=== PATIENT | female | born 1990 | race African-American/Black ===

== ENCOUNTER 2022-08-27 07:37 | Day surgery (SDC) | payer OTHER ==
[2022-08-25 11:55] VITALS: BMI 27.4
[2022-08-27] MEDS ORDERED: methylPREDNISolone ACET (DEPO) 40 MG/1 ML VIAL ONE (08:02)
[2022-08-27] MEDS ORDERED: BUPIVACAINE HCL/EPINEPHRINE/PF 30 ML VIAL IJ ONE (08:02)
[2022-08-27] MEDS ORDERED: MIDAZOLAM HCL 2 MG/2 ML SINGLE DOSE VIAL ONE (09:38)
[2022-08-27] MEDS ORDERED: PROPOFOL 20 ML ONE ×2 (09:38→09:59)
[2022-08-27] MEDS ORDERED: ceFAZolin SODIUM 1 GM VIAL ONE ×2 (09:54)
[2022-08-27] MEDS ORDERED: KETOROLAC TROMETHAMINE 30 MG/1 ML VIAL ONE (09:59)
[2022-08-27] MEDS ORDERED: DEXAMETHASONE SOD PHOSPHATE 4 MG/1 ML VIAL ONE (09:59)
[2022-08-27] MEDS ORDERED: ONDANSETRON 4 MG/2 ML VIAL ONE (09:59)
[2022-08-27] MEDS ORDERED: oxyCODONE HCL 5 MG TABLET PO PRN (10:39)
[2022-08-27] MEDS ORDERED: ONDANSETRON 4 MG/2 ML VIAL IVPUSH PRN (10:39)
[2022-08-27] MEDS ORDERED: ACETAMINOPHEN 325 MG TABLET (FP) PO PRN (10:39)
[2022-08-27] MEDS ORDERED: LACTATED RINGERS SOLUTION 1,000 ML IV SCH (10:45)
[2022-08-27 11:37] VITALS: TEMP 97.3
[2022-08-27 12:04] VITALS: BP 111/78; PULSE 84; RESP 17
== END 2022-08-27 12:04 | disposition home or self-care (01) ==
LOC: FASU 07:37
PROVIDERS: ATTEND Orthopaedic Surgery
PROC: 0SBD4ZZ Excision of Left Knee Joint, Percutaneous Endoscopic Approach (ICD-10-PCS; principal; 2022-08-27 10:05)
DX: M25.562 Pain in left knee (principal); M67.52 Plica syndrome, left knee
CPT/HCPCS: 81025; 94760